=== PATIENT | male | born 1945 | race Caucasian/White ===

== ENCOUNTER 2020-08-28 13:33 | Inpatient (IN) | payer OTHER ==
[~2020-08-28] VITALS: Ht 177.8 cm; Wt 76.7 kg
--- NOTE | ~2020-08-28 | EMS ---
[place] [address] EMS Patient Care Report Name: TIMUR MATHEWS Room: [address] IN [facility]#: [id number] Admission: 08/28/20 Attend Phys: Cristine Van MD Discharge: Date of : 41 Report #: [id number] THIS REPORT FOR: //name// Report Transmitted: 08/29/2020 14:26 EMS Care Summary [facility] [id number] @ 08/28/2020 12:22 Incident Location [address] [place] [address] Patient TIMUR MATHEWS Male, 75 Years 1945 Patient Address [address] [place] [address] Patient History Back Pain (Chronic),Type 2 Diabetes, Patient Allergies Morphine, Patient Medications Tylenol, Hydrocodone, Tramadol, Chief Complaint Back pain Disposition Transported Lights/[place] Dispatch Reason Back Pain (Non-Traumatic) Transported To [facility] Narrative Dispatch: [facility] was dispatched for a male patient experiencing back pain, Med 1 copied tones and went en route non emergent. Chief Complaint: Med 1 arrived on scene to find the [place] [address] EMS Patient Care Report Name: TIMUR MATHEWS Room: [address] IN [facility]#: [id number] Admission: 08/28/20 Attend Phys: Cristine Van MD Discharge: Date of : 41 Report #: [id number]. Patient is alert and does not appear to be in any distress or discomfort. Patient states he has back pain and is unable to move. Patient does appear to be confused while conversating. Patient does become incontinent. Upon attempting to help the patient off of the floor and to his bed, the patient was unable to stand or use his legs. Patient was unable to bend his knees as well. History of present illness/KARIN: Patient's states the patient had a spinal nerve ablasion approx. 1 week prior and has been experiencing pain over the last three days. Patient's states that the patient is acting "weird" and does not normally have difficulty standing. The states the has not been acting like himself all morning. Patient's states the patient attempted to take his morning medications, but she is unsure if he had actually taken them. Assessment: Airway: Clear, patent, and self maintained. Breathing: Clear, and equal bilaterally. Non labored. Circulation: Skin is pink, warm, and dry. Strong radial pulses. Disability: A&OX2, GCS 15. Exposures: No life threats were found. See "assessments" tab for further. Reason for ambulance: Patient is experiencing back pain, requesting EMS treatment and transport to the ED. Treatments: ALS assessment. Positive [place] and MEND exam. 12 lead EKG showing sinus tachycardia. 20G IV left hand. Blood draw. Vitals monitored throughout transport. Summary: With the assistance of EMS, the patient was placed onto the cot, secured in place, and placed into the ambulance for transport. The patient was placed onto the monitor and an IV was established. Med 1 went en route emergent to [place]. The patient's overall condition remained unchanged throughout transport. The patient was unable to follow commands when asked to place his hands in his lap for patient safety. Patient also began reaching for invisible items on his right side throughout transport. Radio report was given and a stroke activation was made with no further questions or orders received. Med 1 arrived at destination and the patient was taken to CT where he was sheet transferred onto the scanner. Report was given and signatures and paperwork were received. Med 1 returned back in service. Initial Vitals @13:18P: 123,R: 18,BP: 162/73,SpO2: 99, @13:28P: 123,R: 18,BP: 164/75,SpO2: 98, @12:35P: 92,R: 18,BP: 168/70,GCS: 15,Glucose: 267,SpO2: 98,Revised Trauma: 12, @12:54R: 18,BP: 170/64,GCS: 12,Glucose: 267,SpO2: 99,Revised Trauma: 11,[place] [address] EMS Patient Care Report Name: TIMUR MATHEWS Room: [address] ADM IN M.R.#: [id number] Admission: 08/28/20 Attend Phys: Cristine Van MD Discharge: Date of : 41 Report #: [id number] Suspected: false @13:05P: 93,R: 18,BP: 167/60,GCS: 12,SpO2: 99,Revised Trauma: 11, Assessments @12:30MENTAL:Confused,Person Oriented,Place Oriented,SKIN:HEENT:Head/Face: Facial Droop,LUNG SOUNDS:ABDOMEN:PELVIS//GI:Incontinence,EXTREMITIES:Left Leg: Weakness,Right Leg: Weakness,Capillary Refill: Right Upper: < 2 Sec,Right Arm: Weakness,PULSE:Radial: 2+ Normal,NEURO:Abnormal Gait,Facial Droop,Weakness Right-Sided,@13:19MENTAL:Person Oriented,Confused,Place Oriented,SKIN:HEENT:Head/Face: Facial Droop,LUNG SOUNDS:ABDOMEN:PELVIS//GI:EXTREMITIES:Left Leg: Weakness,Right Arm: Weakness,Right Leg: Weakness,Capillary Refill: Right Upper: < 2 Sec,PULSE:Radial: 2+ Normal,NEURO:Slurred Speech,Weakness Right-Sided,Abnormal Gait,Facial Droop, Impression Back Pain Procedures @12:30ALS AssessmentResponse: UnchangedSucceeded@12:56Saline Lock 0cc (20 ga) Site: Antecubital-LeftResponse: UnchangedFailed@13:03Saline Lock 0cc (20 ga) Site: Hand-RightResponse: UnchangedSucceeded@13:03 cc (20 ga) Site: Hand-LeftResponse: UnchangedSucceeded Timeline 12:19,Call Received 12:22,Dispatched 12:22,En Route 12:27,On Scene 12:29,At Patient 12:30,ALS Assessment,Response: UnchangedSucceeded, 12:35,BP: 168/70 M,PULSE: 92,RR: 18 R,SPO2: 98 Ox,ETCO2: ,B,PAIN: ,GCS: 15, 12:54,BP: 170/64 M,PULSE: ,RR: 18 R,SPO2: 99 Ox,ETCO2: ,B,PAIN: ,GCS: 12, 12:56,Saline Lock 0cc 20 ga Site: Antecubital-Left,Response: UnchangedFailed, 13:01,Depart Scene 13:03,Saline Lock 0cc 20 ga Site: Hand-Right,Response: UnchangedSucceeded, 13:03, cc 20 ga Site: Hand-Left,Response: UnchangedSucceeded, 13:05,BP: 167/60 M,PULSE: 93,RR: 18 R,SPO2: 99 Ox,ETCO2: ,BG: ,PAIN: ,GCS: 12, 13:18,BP: 162/73 M,PULSE: 123,RR: 18 R,SPO2: 99 Ox,ETCO2: ,BG: ,PAIN: ,GCS: , 13:28,BP: 164/75 M,PULSE: 123,RR: 18 R,SPO2: 98 Ox,ETCO2: ,BG: ,PAIN: ,GCS: , 13:32,At Destination 14:26,Call Closed Disclaimer v1.1 Copyright 2020 [employer] [place] [address] EMS Patient Care Report Name: TIMUR MATHEWS Room: [address]#: [id number] Admission: 08/28/20 Attend Phys: Cristine Van MD Discharge: Date of : 41 Report #: [id number] This EMS Care Summary contains data elements from the applicable legal record (which may be displayed differently). It is designed to provide pertinent information for the following purposes: continuity of care, clinical quality, and state data reporting. The complete legal record is available to ED staff and administrators of the receiving hospital in [facility]'s Patient Tracker. All data is provided "as is."
[~2020-08-28 13:33] MED LIST: ASPIRIN81 MG PO; AVANDIA PO; COUMADIN 5 MG TA5 MG PO; COUMADIN7.5 MG PO; DIOVAN PO; DOFETILIDE PO; LANTUS; LIPITOR20 MG PO; LOPRESSOR 12.12.5 MG PO; MAG-OX 400 TAB400 MG PO; MESTINON60 MG PO; [UNRECOGNIZED DRUG - OTHER] PO
[2020-08-28 13:59] LABS: HEMATOCRIT 38.6 % (42.0-52.0); HEMOGLOBIN 12.5 gm/dL (14.0-18.0); MCH 24.9 pg (26.0-34.0); MCHC 32.3 g/dL (28.0-37.0); MCV 77.3 fL (80.0-100.0); MPV 6.5 fl. (7.2-11.1); NUCLEATED RBCS 0 /100WBC; PLATELET COUNT* 233 thou/uL (150-400); RDW-CV 16.9 % (10.5-14.5)
[2020-08-28 14:07] VITALS: BP 123/45
[2020-08-28 14:08] LABS: INR 1.5; PROTIME 15.4 Seconds (9.20-11.50)
[2020-08-28] MEDS ORDERED: NORCO7.5 PO (14:28)
[2020-08-28] MEDS ORDERED: FENOFIBRIC ACI135 MG PO (14:29)
[2020-08-28] MEDS ORDERED: SLOW FE142 MG PO (14:29)
[2020-08-28] MEDS ORDERED: CALCIUM-VITAMI1 EACH PO (14:29)
[2020-08-28] MEDS ORDERED: JARDIANCE10 MG PO (14:29)
[2020-08-28] MEDS ORDERED: GLUCAGEN1 M2 IM (14:30)
[2020-08-28] MEDS ORDERED: GLUCOSAMINE1000 MG PO (14:30)
[2020-08-28] MEDS ORDERED: NOVOLIN N100 UNIT/3 SUBQ (14:31)
[2020-08-28] MEDS ORDERED: GLYCOPYRROLATE 11 MG PO (14:31)
[2020-08-28] MEDS ORDERED: HUMULINR100 SUBQ (14:32)
[2020-08-28] MEDS ORDERED: COZAAR 25 MG TA25 M2 PO (14:32)
[2020-08-28] MEDS ORDERED: TOPROL XL50 MG PO (14:32)
[2020-08-28 14:33] LABS: CALCIUM 8.5 mg/dL (8.5-10.1); CREATININE 0.8 mg/dL (0.6-1.3); POTASSIUM 4.3 mmol/L (3.5-5.1)
[2020-08-28] MEDS ORDERED: PREDNISONE 10 M10 MG PO (14:33)
[2020-08-28] MEDS ORDERED: MYCOPHENOLATE500 MG PO (14:33)
[2020-08-28] MEDS ORDERED: SOTALOL80 MG PO (14:34)
[2020-08-28] MEDS ORDERED: PYRIDOSTIGMINE60 M1 PO (14:34)
[2020-08-28] MEDS ORDERED: ULTRAM50 MG PO (14:35)
[2020-08-28] MEDS ORDERED: TIZANIDINE HCL4 M2 PO (14:35)
[2020-08-28 14:37] LABS: ALBUMIN 3.1 g/dL (3.4-5.0); TOTAL BILIRUBIN 0.9 mg/dL (<0.1-1.0); TOTAL PROTEIN 6.4 g/dL (6.4-8.2)
[2020-08-28 14:47] LABS: ABSOLUTE BASOPHILS 0.1 thou/uL (0.0-0.2); ABSOLUTE LYMPHOCYTES 0.8 thou/uL (0.8-5.3); ABSOLUTE MONOCYTES 0.6 thou/uL (0.0-1.2); ABSOLUTE NEUTROPHILS 5.4 thou/uL (1.6-8.1); PLATELET ESTIMATE ADEQUATE
[2020-08-28 15:42] LABS: URINE BILIRUBIN NEGATIVE (Negative); URINE BLOOD TRACE (Negative); URINE CLARITY CLEAR; URINE COLOR YELLOW; URINE GLUCOSE-RANDOM 1+ (Negative); URINE KETONES NEGATIVE (Negative); URINE LEUKOCYTES-REFLEX NEGATIVE (Negative); URINE NITRITE-REFLEX NEGATIVE (Negative); URINE PROTEIN NEGATIVE (Negative); URINE UROBILINOGEN 0.2 E.U./dl (0.2-1.0)
--- NOTE | 2020-08-28 16:24 | EKG ---
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: HIRA : 1945 Requested By: Frank Kathleen Order Number: [id number] MD: Flaco Lizarraga Measurements Intervals [place] Rate: 82 P: [place]: 129 QRS: 21 QRSD: 85 T: 148 QT: 364 QTc: 425 Interpretive Statements Atrial-paced complexes Probable LVH with secondary repol abnrm Compared to ECG 04/29/2009 08:41:35 Sinus rhythm no longer present Anterolateral ST-T abnormalities have diminished Electronically Signed On 08-28-2020 16:24:14 CDT by Flaco Lizarraga [email or web address] <ELECTRONICALLY SIGNED> By: Flaco Lizarraga MD, [facility] 08/28/20 1624 1410 1410 Flaco Lizarraga MD, FAC /EPI
[2020-08-28 16:26] VITALS: BP 154/62
[2020-08-28 16:45] VITALS: BP 100/53
--- NOTE | 2020-08-28 18:33 | NUR ---
RECEIVED REPORT FROM ANDREW WEINER. PT ARRIVED ON UNIT AROUND 1645. ADMIT DONE IN CHART. VS STABLE. IV INTACT RIGHT HAND. HEART MONITOR ATTACHED AT APACED. PT LYING IN BED. USES WALKER AND CANE AT HOME. FAMILY STATED "UNSTABLE" "FALLS". FAMILY UPDATED ON PT. DR DOMINGUEZ SAW PT THIS EVENING. PAIN TO BACK DUE BACK ABLASION RECENTLY. CALL LIGHT WITHIN REACH. WILL CONTINUE TO MONITOR.
[2020-08-28 20:00] VITALS: BP 136/50
[2020-08-29] VITALS: BP 141/82
--- NOTE | 2020-08-29 03:20 | NUR ---
PT ALERT ORIENTED XS 4. PT WEAK NEEDS FREQUENT PULL UPS IN BED. ONE EPISOID OF NAUSIA RELIEVED WITH ZOFRAN. TELEMETRY SHOWS V-PACED WITH UNDRLYING AFIB. SOMETIMES 100% PACED. ON RA O2 AT 90-92%
[2020-08-29 03:33] LABS: HEMATOCRIT 36.7 % (42.0-52.0); HEMOGLOBIN 11.7 gm/dL (14.0-18.0); MCH 24.8 pg (26.0-34.0); MCHC 31.9 g/dL (28.0-37.0); MCV 77.6 fL (80.0-100.0); MPV 6.3 fl. (7.2-11.1); RBC 4.73 mil/uL (4.50-6.00); RDW-CV 17.1 % (10.5-14.5); WBC 7.4 thou/uL (4.0-11.0)
[2020-08-29 03:48] LABS: CALCIUM 9.1 mg/dL (8.5-10.1); CREATININE 0.9 mg/dL (0.6-1.3); POTASSIUM 4.9 mmol/L (3.5-5.1)
[2020-08-29 03:57] LABS: CHOLESTEROL 192 mg/dL (<200); HDL CHOLESTEROL 47 mg/dL (>40); LDL CHOLESTEROL 120 mg/dL (<100); TC:HDL 4.1 Ratio (Not establshd); TRIGLYCERIDE 128 mg/dL (<150); VLDL 26 mg/dL (<40)
[2020-08-29 04:00] VITALS: BP 94/49
[2020-08-29 04:00] LABS: SERUM ASSESSMENT CLEAR
[2020-08-29 09:00] VITALS: BP 111/90
[2020-08-29 11:54] VITALS: BP 118/54
--- NOTE | 2020-08-29 13:45 | NUR ---
Pt discharging home, contacted PCP, faxed HH orders to [facility].
--- NOTE | 2020-08-29 14:00 | NUR ---
ASSUMED PT CARE AT 0730. PT SI A&OX4 AND SLOW TO RESPOND TO QUESTIONS. ASSESSMENT COMPLETED, PT DENIES ANY PAIN OR DISCOMFORT. PT UP TO BATHROOM WITH STAND BY ASSIST. SAFETY MEASURES IN PLACE. ALL MEDICATIONS ADMINISTERED ORDERED. PT TO ASSESS PT. NEW ORDERS TO DISCHARGE PT TO HOME WITH SPOUSE. DISCHARGE INSTRUCTIONS REVIEWED WITH PT AND SPOUSE VERBALIZE UNDERSTANDING.
[2020-08-29 14:41] VITALS: BP 118/54
--- NOTE | 2020-08-29 16:43 | NUR ---
PT. DISCHARGED TO HOME PRIOR TO O.T. EVAL. PLEASE ORDER FURTHER O.T. SERVICES IF NEEDED.
[2020-08-30 02:06] LABS: GLYCOHEMOGLOBIN (HGB A1C) 10.6 % (4.8-5.6)
== END 2020-08-29 15:05 | disposition home health service (06) | DRG 92 ==
LOC: M.ERS 13:33 → M.2W 15:17 → M.TBA-ER 15:17 → M.2W 16:26
PROVIDERS: Emergency Medicine Emergency Medical Services; ADMIT Family Medicine; ATTEND Family Medicine
DX: G92 Toxic encephalopathy (principal); E44.1 Mild protein-calorie malnutrition; M54.89 Other dorsalgia; E78.00 Pure hypercholesterolemia, unspecified; G89.29 Other chronic pain; E78.5 Hyperlipidemia, unspecified; I25.10 Atherosclerotic heart disease of native coronary artery without angina pectoris; T40.605A Adverse effect of unspecified narcotics, initial encounter; E11.9 Type 2 diabetes mellitus without complications; Z20.822 Contact with and (suspected) exposure to COVID-19; Y92.89 Other specified places as the place of occurrence of the external cause; Z79.82 Long term (current) use of aspirin; Z79.899 Other long term (current) drug therapy; Z88.6 Allergy status to analgesic agent; Z86.73 Personal history of transient ischemic attack (TIA), and cerebral infarction without residual deficits; Z68.24 Body mass index [BMI] 24.0-24.9, adult